=== PATIENT | male | born 1980 ===

== ENCOUNTER 2022-11-16 11:59 | Inpatient (IN) | payer MEDICAID, OTHER ==
[~2022-11-16] VITALS: Ht 188 cm; Wt 81.1 kg
[2022-11-16 13:44] LABS: BASOPHILS % (AUTO) 1.5 % (0.0-2.0); EOSINOPHILS % (AUTO) 3.1 % (1.0-6.0); HEMATOCRIT 46.3 % (41-53); HEMOGLOBIN 15.4 g/dL (13.5-17.5); LYMPHOCYTES # (AUTO) 1.7 K/uL (1.0-4.8); MEAN CORPUSCULAR HEMOGLOBIN 28.9 pg (26.0-34.0); MEAN CORPUSCULAR HGB CONC 33.2 G/dL (31.0-37.0); MEAN CORPUSCULAR VOLUME 87 fL (80-100); MONOCYTES # (AUTO) 0.5 K/uL (0.1-1.0); MONOCYTES % (AUTO) 10.2 % (2.0-9.0); NEUTROPHILS # (AUTO) 2.3 K/uL (1.8-7.7); NEUTROPHILS % (AUTO) 49.2 % (40.0-70.0); PLATELET COUNT (AUTO) 284 K/uL (150-450); RED BLOOD CELL COUNT(AUTO) 5.32 MIL/uL (4.50-5.90); RED CELL DISTRIBUTION WIDTH 14.6 % (11.5-14.5)
[2022-11-16 13:55] LABS: ANION GAP 5 mmol/L (8-16); CARBON DIOXIDE 31 mmol/L (22-29); CHLORIDE 102 mmol/L (98-107); CREATININE 1.26 mg/dL (0.60-1.30); GLOMERULAR FILTR. RATE CALC > 60 mL/min (>60); GLUCOSE,RANDOM 86 mg/dL (70-110); POTASSIUM 3.8 mmol/L (3.5-5.1); SODIUM SERUM 138 mmol/L (136-145)
[2022-11-16 14:01] LABS: ALANINE AMINOTRANSFERASE 37 U/L (12-78); ALBUMIN 4.1 g/dL (3.4-5.0); ALKALINE PHOSPHATASE 121 U/L (46-116); ASPARTATE AMINOTRANSFERASE 29 U/L (15-37); BILIRUBIN,TOTAL 0.3 mg/dL (0.1-1.0); TOTAL PROTEIN, SERUM 8.5 g/dL (6.4-8.2)
[2022-11-16] MEDS ORDERED: IPRATROPIUM BROMIDE 0.5 MG/2.5 ML NEB SOLUTION NEB PRN (18:45)
[2022-11-16] MEDS ORDERED: HYDROCODONE/ACETAMINOPHEN 5-325 MG TABLET PO PRN (18:45)
[2022-11-16] MEDS ORDERED: ACETAMINOPHEN 325 MG TABLET PO PRN (18:45)
[2022-11-16] MEDS ORDERED: MAGNESIUM HYDROXIDE SUSPENSION 30 ML UDCUP PO PRN (18:45)
[2022-11-16] MEDS ORDERED: ALBUTEROL SULFATE 2.5 MG/0.5 ML NEB SOLUTION NEB PRN (18:45)
[2022-11-16] MEDS ORDERED: ONDANSETRON HCL 4 MG/2 ML VIAL IVP PRN (18:45)
[2022-11-16] MEDS ORDERED: ZOLPIDEM TARTRATE 5 MG TABLET PO PRN (18:45)
[2022-11-16] MEDS ORDERED: PANTOPRAZOLE SODIUM 40 MG DR TABLET PO ONE (18:45)
[2022-11-16] MEDS ORDERED: BISACODYL 10 MG RECTAL RECTAL SUPPOSITORY PR PRN (18:45)
[2022-11-16] MEDS ORDERED: MORPHINE SULFATE 2 MG/ML SYRINGE IVP PRN (18:45)
[2022-11-16 22:59] VITALS: BP 117/77
[2022-11-17] MEDS: HEPARIN SODIUM,PORCINE 5,000 UNITS/ML VIAL SQ SCH ×4 (01:16→23:06)
[2022-11-17 05:33] VITALS: BP 127/73
[2022-11-17 07:55] VITALS: BP 129/82
[2022-11-17 12:15] VITALS: BP 127/79
[2022-11-17 16:10] VITALS: BP 130/84
[2022-11-17 20:45] VITALS: BP 134/89
[2022-11-18 04:30] VITALS: BP 113/79
[2022-11-18 08:15] VITALS: BP 122/82
[2022-11-18] MEDS: HEPARIN SODIUM,PORCINE 5,000 UNITS/ML VIAL SQ SCH ×2 (08:44→16:30)
[2022-11-18 12:10] VITALS: BP 124/80
[2022-11-18 16:15] VITALS: BP 127/83
[2022-11-18 23:11] VITALS: BP 109/70
[2022-11-19] MEDS: HEPARIN SODIUM,PORCINE 5,000 UNITS/ML VIAL SQ SCH ×3 (00:09→17:15)
[2022-11-19 06:20] VITALS: BP 120/75
[2022-11-19 07:45] VITALS: BP 118/70
[2022-11-19 11:16] VITALS: BP 106/74
[2022-11-19 15:25] VITALS: BP 116/72
[2022-11-19 22:16] VITALS: BP 122/72
[2022-11-20] MEDS: HEPARIN SODIUM,PORCINE 5,000 UNITS/ML VIAL SQ SCH ×4 (00:11→23:41)
[2022-11-20 04:12] VITALS: BP 126/72
[2022-11-20 07:48] VITALS: BP 121/75
[2022-11-20 15:35] VITALS: BP 121/71
[2022-11-20 19:25] VITALS: BP 115/77
[2022-11-21 03:35] VITALS: BP 121/83
[2022-11-21] MEDS: HEPARIN SODIUM,PORCINE 5,000 UNITS/ML VIAL SQ SCH ×3 (07:55→23:33)
[2022-11-21 08:09] VITALS: BP 134/75
[2022-11-21 15:20] VITALS: BP 140/84
[2022-11-21 20:12] VITALS: BP 127/76
[2022-11-22 03:36] VITALS: BP 126/83
[2022-11-22 08:00] VITALS: BP 147/69
[2022-11-22] MEDS: HEPARIN SODIUM,PORCINE 5,000 UNITS/ML VIAL SQ SCH (08:15)
== END 2022-11-22 15:00 | disposition home or self-care (01) | DRG 113 ==
LOC: EMS 12:16 → 5N 18:44 → 6S 11-19 18:30
PROVIDERS: ADMIT Hospitalist; ATTEND Hospitalist
DX: J06.9 Acute upper respiratory infection, unspecified (principal); Z86.11 Personal history of tuberculosis
CPT/HCPCS: 71045; 80053; 85025; 87015; 87206; 99285; G0378; J1644; 36415-L1; 36415-TC